=== PATIENT | male | born 1960 | race Asian ===

== ENCOUNTER 2019-05-06 22:34 | Inpatient (IN) | payer MEDICARE, OTHER ==
[~2019-05-06] VITALS: Ht 162.6 cm; Wt 69.9 kg
--- NOTE | 2019-05-06 22:45 | NUR ---
Patient BIB [facility] from [facility] Med-surg unit on a 5150 hold for DTS. Patient upon arrival A/Ox3, ambulatory with steady gait. No distress noted. Placed in room 3 and provided comfort and safety measures.
--- NOTE | 2019-05-06 22:50 | NUR ---
Hospital's secruity sandor doing 1:1 sitter on patient for safety.
[2019-05-06] MEDS ORDERED: ESOM20CA37 PO (22:56)
[2019-05-06] MEDS ORDERED: DOXE10CA2 PO (22:56)
[2019-05-06] MEDS ORDERED: METO-357 PO (22:56)
[2019-05-06] MEDS ORDERED: PYRI50CA PO (22:56)
[2019-05-06] MEDS ORDERED: ALPR1TAB7 PO (22:56)
[2019-05-06] MEDS ORDERED: DILT-32 PO (22:56)
[2019-05-06] MEDS ORDERED: FAMO40TA7 PO (22:56)
[2019-05-06] MEDS ORDERED: ATOR40TA PO (22:56)
[2019-05-06] MEDS ORDERED: DIPH-873 PO (22:56)
[2019-05-06] MEDS ORDERED: DOCU100C36 PO (22:56)
[2019-05-06] MEDS ORDERED: PROP150T2 PO (22:56)
[2019-05-06 23:19] LABS: BASOPHILS # (AUTO) 0.1 K/uL (0.0-8.0); BASOPHILS % (AUTO) 1.3 % (0.0-2.0); EOSINOPHILS # (AUTO) 0.7 K/uL (0.0-0.7); HEMOGLOBIN 14.1 g/dL (12.5-16.3); LYMPHOCYTES # (AUTO) 1.7 K/uL (20.0-40.0); MEAN CORPUSCULAR HEMOGLOBIN 30.6 uug (23.8-33.4); MEAN CORPUSCULAR HGB CONC 33 g/dL (32.5-36.3); MEAN CORPUSCULAR VOLUME 93.3 fL (73.0-96.2); MONOCYTES # (AUTO) 0.6 K/uL (2.0-10.0); MONOCYTES % (AUTO) 9.6 % (0.0-11.0); NEUTROPHILS # (AUTO) 2.8 K/uL (1.8-8.9); NEUTROPHILS % (AUTO) 48.1 % (38.5-71.5); PLATELET COUNT (AUTO) 300 K/uL (152-348); RED BLOOD CELL COUNT(AUTO) 4.61 MIL/uL (4.06-5.63); WHITE BLOOD COUNT (AUTO) 5.8 K/uL (3.6-10.2)
[2019-05-06 23:29] LABS: CARBON DIOXIDE 27 mmol/L (21-32); CHLORIDE 102 mmol/L (98-107); CREATININE 1.1 mg/dL (0.6-1.3); GLUCOSE 116 mg/dL (74-106); POTASSIUM 4.2 mmol/L (3.5-5.1); UREA NITROGEN, BLOOD 12 mg/dL (7-18)
[2019-05-06 23:30] LABS: *BILIRUBIN,URIN NEGATIVE (NEGATIVE); *CLARITY,URINE CLEAR (CLEAR); *COLOR,URINE YELLOW (YELLOW); *KETONES,URINE NEGATIVE (NEGATIVE); *UROBILINOGEN,URINE 0.2 E.U./dl (NORMAL); LEUKOCYTE ESTERASE ,URINE NEGATIVE (NEGATIVE); NITRITE, URINE NEGATIVE (NEGATIVE); UGLUCOSE NEGATIVE (NEGATIVE)
[2019-05-06 23:32] LABS: *BLOOD, URINE TRACE (NEGATIVE)
[2019-05-06 23:35] LABS: ALANINE AMINOTRANSFERASE 34 U/L (16-63); ALKALINE PHOSPHATASE 64 U/L (50-136); ASPARTATE AMINOTRANSFERASE 30 U/L (15-37); BILIRUBIN,DIRECT 0.1 mg/dL (0.0-0.2); BILIRUBIN,TOTAL 0.5 mg/dL (0.2-1.0); TOTAL PROTEIN, SERUM 7.3 g/dL (6.4-8.2)
[2019-05-06 23:37] LABS: ACETAMINOPHEN < 2.0 ug/mL (10-30)
[2019-05-06 23:38] LABS: RBC,URINE 0-3 /HPF (0-3)
[2019-05-06 23:39] LABS: BACTERIA,URINE NONE SEEN /HPF (NONE SEEN); SQUAMOUS EPITHELIAL CELL,UR NONE SEEN /HPF (NONE SEEN); WBC,URINE 0-3 /HPF (0-3)
[2019-05-06 23:42] LABS: THYROID STIMULATING HORMONE 0.869 mIU/mL (0.358-3.740)
[2019-05-06 23:50] LABS: *AMPHETAMINE, URINE NEGATIVE (NEGATIVE); *BARBITURATE, URINE NEGATIVE (NEGATIVE); *CANNABINOID, URINE NEGATIVE (NEGATIVE); *COCCAINE, URINE NEGATIVE (NEGATIVE); *OPIATE, URINE NEGATIVE (NEGATIVE); *PHENCYCLIDINE SCREEN,URINE NEGATIVE (NEGATIVE)
[2019-05-06 23:51] LABS: ETHANOL < 3 MG/DL (0-0)
--- NOTE | 2019-05-07 00:11 | NUR ---
Medically cleared by Dr Valdez.
--- NOTE | 2019-05-07 01:10 | NUR ---
Transfered to [facility] via [employer].
[2019-05-07] MEDS ORDERED: LORAZEPAM 1 MG TABLET PO PRN (01:15)
[2019-05-07] MEDS ORDERED: MAGNESIUM HYDROXIDE 30 ML LIQUID UDC PO PRN (01:15)
[2019-05-07] MEDS ORDERED: ACETAMINOPHEN 325 MG TABLET PO PRN (01:15)
[2019-05-07] MEDS ORDERED: MAG HYDROX/AL HYDROX/SIMETH 30 ML LIQUID UDC PO PRN (01:15)
[2019-05-07] MEDS ORDERED: TEMAZEPAM 7.5 MG CAPSULE PO PRN (01:15)
[2019-05-07 01:19] VITALS: BP 110/68
--- NOTE | 2019-05-07 02:00 | NUR ---
Admission Note: 59 y.o. (Mandarin/Slovak-speaking) male brought to MHU from ER via gurney accompanied by ER staff. Pt admitted on a 5150 for DTS under the care of Dr Villagomez and Dr Miles with a dx of MDD. According to the 5150, Pt had a failed suicide attempt by overdosing on an unknown amount of Doxepin, Ambien and Xanax. Pt initially stated he only took one extra pill then changed his story after being confronted with having been in the ICU and incubated for the past several days. Per Pts family, he has been avoiding psychiatric treatment for some time. Pt appears to reflect what is written on the Hold. Upon admission to the unit, VS stable, denies pain, and in no apparent physical distress. Upon face to face evaluation, Pt is A+Ox3, and states he is here, Because I ate too much medication. Pt admitted that he did it on purpose, but became guarded and gave limited disclosure stating, I dont want to say right now. Pt is hyper-fixated on discharging, and demands to see his psychiatrist first thing in the morning to tell him it was all a mistake. Pt denies or refuses to state and triggers or stressors leading to the event. Pt states he is no longer suicidal and no longer wants to . Verbally contracts for safety inside the hospital. Pt encouraged to seek staff if feeling self-injurious or suicidal, Pt verbalized understanding and agreed. Affect is guarded and flat, speech is pressured, and thought process is circumstantial. Pt denies AH/VH/HI. Pt was cooperative with the admission process and signed all paperwork, however became angry and very irritable when his electronic devices were being taken to put in the contraband storage, Pt was redirected. Denies any prior psychiatric hospital admissions or treatment. Pt denies an access to firearms or any legal hx, denies any current or prior smoking or substance abuse issues. Skin assessment completed-multiple circular scabs noted to (L) lower back, photo taken and placed in chart. Skin otherwise c/d/i. Medical h/o afib with (L) pacemaker, HLD, HTN, hydrocephalus with V/P shunt, anxiety, and MDD, allergy to morphine noted. Dr Villagomez and Dr Miles notified of admission, home meds to be reconciled, orders received. Pt belongings inventoried, contraband placed in unit locker. Pt gave permission to call his Padmini, and she was notified of Pt admission. Weak, unsteady gait noted, PT ordered. PNA and flu vaccinations ordered per Pt request. Patient Rights handbook and Advisement and Pt rights handbook given, unit rules explained, Pt verbalized understanding. Pt oriented to the unit, the phone, the restrooms, and his room. Q 15 minute rounding initiated for safety.
--- NOTE | 2019-05-07 03:02 | NUR ---
Social Work Note/Family: Patients agreed to pickling solution maker patient tomorrow.
--- NOTE | 2019-05-07 06:03 | NUR ---
[facility] called regarding medication reconciliation. Awaiting call back from Barrel Lathe Operator Outside [employer].
[2019-05-07 08:30] VITALS: BP 108/74
[2019-05-07] MEDS ORDERED: PNEUMOCOCCAL 23-VAL P-SAC VAC 0.5 ML VIAL IM ONE (09:00)
[2019-05-07] MEDS ORDERED: INFLUENZA VACCINE 2019-2020 0.5 ML DISP.SYRIN IM ONE (09:00)
--- NOTE | 2019-05-07 10:54 | NUR ---
Social Work Note/Initial Discharge Plan: Patient currently resides at home with Padmini ([phone]) [place] [address] [place] [address], ([phone]). Per patient, he would like to go home upon discharge. anode worker will work with the patient and the MD regarding appropriate discharge planning. anode worker will form a safe and proper discharge.
--- NOTE | 2019-05-07 10:55 | NUR ---
Social Work Note/Family Contact: crime prevention worker contacted patients Padmini ([phone]) who expressed that she has a language barrier and is unable to speak frisian. Per Padmini, she said to contact patients son Saad ([phone]). crime prevention worker contacted Saad ([phone]) who stated that he would want to meet with health and social care teacher 05/07/19 to discuss patients status.
--- NOTE | 2019-05-07 13:42 | NUR ---
Social Work Note/Family Contact: Patients family members son Saad ([phone]) and Pdamini ([phone]) visited social service assistant. Per Saad, he expressed that when patient was at [facility] his Doctor () was discharging patient and that our PET team went and put him on a hold, which the family is not agreeing with. Per Saad, he expressed that it was bad timing and that patient was already discharged and that Lance from our PET team went ahead and put patient on hold. stoneworker educated family about the safety of the patient and the reason for the hold. Family expressed that patient is not suicidal and that it was all a miscommunication with the staff. Per Saad, he expressed that the psychiatrist Dr. Mccullough discontinued patients medication Ativan as it made patient more agitated. Per Saad, he expressed that Seroquel was helpful and that benadryl helps with sleep. stoneworker educated patients family on what a 5150 hold is.
[2019-05-07] MEDS ORDERED: DOCUSATE SODIUM 100 MG CAPSULE PO PRN (14:00)
[2019-05-07] MEDS ORDERED: diphenhydrAMINE 25 MG CAP PO PRN (14:00)
[2019-05-07] MEDS ORDERED: CLOBETASOL PROPIONATE 0.05% OINT 15 GM TUBE TOP SCH (14:30)
[2019-05-07] MEDS ORDERED: MOMETASONE FUROATE 15 GM CREAM.GM. TOP SCH (14:30)
[2019-05-07] MEDS: CLOBETASOL PROPIONATE 0.05% CREAM 15 GM TUBE TP SCH ×2 (15:38→22:05)
[2019-05-07] MEDS: LORATADINE 10 MG TABLET PO SCH (15:39)
[2019-05-07 16:00] VITALS: BP 110/66
--- NOTE | 2019-05-07 16:01 | NUR ---
Social Work Note/Coordination of Care: livestock farmworker contacted patients primary doctor Dr. Saad Aguilera [address], [place] [address]; ([phone]) and spoke to Calvin who scheduled patient appointment for May 16 at 3PM. livestock farmworker faxed patients progress notes and [facility] psychiatric notes to Dr. Nash office ([phone]). livestock farmworker also called [facility] ([phone]) and spoke to [facility] who made the appointment for patient on May 15, 2019 at 9AM for a psychiatrist appointment with Dr. Tomy Oliver. livestock farmworker faxed patients progress notes and [facility] psychiatric notes to [facility] ([phone]).
--- NOTE | 2019-05-07 16:07 | NUR ---
Social Work Note/Coordination of Care: health workers spoke to Gisell ([phone]) who stated that if patient has any issues with his insurance upon arrival to see Dr. Huitron (psychiatrist) at [facility], the patient will have the opportunity to file a waiver form.
--- NOTE | 2019-05-07 16:10 | NUR ---
Social Work Note/Substance Abuse Intervention: Patient was provided with a brief substance abuse intervention and referred to [facility] , [facility] , and [facility] .
--- NOTE | 2019-05-07 16:11 | NUR ---
Bottom Polisher Note/Coordination of Care: heater worker contacted [facility] intake ([phone]) who shared phone number to Yuridia ([phone]) who would be able to refer patient to a psychiatrist. heater worker contacted Yuridia but she was unavailable. heater worker left a voicemail. heater worker then contacted [facility] ([phone]) who shared another contact number ([phone]) who operator bearer systems Jaydon helped community mental health social worker find [facility] phone number to make patient a psychiatrist appointment ([phone]) and stated that his insurance is covered.
[2019-05-07] MEDS ORDERED: Medication Not On Formulary EA (Famotidine 40 MG) PO SCH (17:00)
[2019-05-07] MEDS: PROPAFENONE HCL 150 MG TABLET PO SCH (18:14)
[2019-05-07] MEDS: FAMOTIDINE 20 MG TABLET PO SCH (18:16)
[2019-05-07 20:17] VITALS: BP 124/81
[2019-05-07] MEDS ORDERED: ATORVASTATIN 40 MG TABLET PO SCH (21:00)
[2019-05-08] MEDS ORDERED: PANTOPRAZOLE SODIUM 40 MG TABLET.DR PO SCH (07:00)
[2019-05-08 07:30] VITALS: BP_SYST 119; BP_SYST 129; BP_DIAS 64; BP_DIAS 80
--- NOTE | 2019-05-08 08:05 | NUR ---
Discharge Note: Patient will be discharged home to [address], [place] [address]; [phone]. Patients Padmini will coal picker patient at 10AM. Patients Padmini , ([phone]) is aware and agreeable to patients discharge. Upon discharge, patient appear to be calm, cooperative and happy to be going home. Patient denies suicidal and homicidal ideation. Patient will follow up with primary doctor Dr. Saad Aguilera [address], [place] [address]; ([phone]) appointment for May 16 at 3PM. Patient will address substance abuse dependency with psychiatrist and primary doctor. Patient will follow up with psychiatrist Dr. Tomy Oliver at [facility] at [address], [address] ([phone]) appointment for patient on May 15, 2019 at 9AM. Patient was provided with a brief substance abuse intervention and referred to [facility] , [facility] , and [facility] . Patient presents with euthymic and congruent mood. Patient was provided with outpatient mental health resources to [facility] , and the National Suicide Prevention Lifeline . Patient presented with euthymic and congruent mood.
[2019-05-08] MEDS ORDERED: DILTIAZEM HCL CD 120 MG CAP.SR.24H PO SCH (09:00)
[2019-05-08] MEDS ORDERED: ESOMEPRAZOLE MAGNESIUM 20 MG PO SCH (09:00)
[2019-05-08] MEDS ORDERED: Medication Not On Formulary EA (Pyridoxine Hcl (Vitamin B-6) 50 MG) PO SCH (09:00)
[2019-05-08] MEDS ORDERED: METOPROLOL SUCCINATE XL 50 MG TAB.SR.24H PO SCH (09:00)
[2019-05-08] MEDS: FAMOTIDINE 20 MG TABLET PO SCH (09:36)
[2019-05-08] MEDS: PROPAFENONE HCL 150 MG TABLET PO SCH (09:36)
[2019-05-08] MEDS: LORATADINE 10 MG TABLET PO SCH (09:36)
[2019-05-08] MEDS: CLOBETASOL PROPIONATE 0.05% CREAM 15 GM TUBE TP SCH (09:36)
[2019-05-08 09:41] VITALS: BP 119/80
--- NOTE | 2019-05-08 11:39 | NUR ---
Patient is being discharged home. Pt is being picked up by his Padmini. Discharge instructions are given. Patient verbalizes understanding, including the need to follow up with the psychiatrist and keep his appointment. Pt denies S.I and contracts for safety. All belongings returned. Pt signed the paperwork. VS are stable.
--- NOTE | 2019-06-05 16:13 | NUR ---
Social Work Note/Substance Abuse Follow-up: workers' compensation commissioner was unable to conduct a thorough follow-up intervention due to patient not picking up. This grant writer attempted 3 times ([phone]) and left voicemails.
== END 2019-05-08 13:10 | disposition home or self-care (01) | DRG 881 ==
LOC: ER 22:39 → GPS 23:59
PROVIDERS: ADMIT Psychiatry & Neurology Psychiatry; ATTEND Nurse Practitioner Acute Care
DX: F32.9 Major depressive disorder, single episode, unspecified (principal); K21.9 Gastro-esophageal reflux disease without esophagitis; Z95.0 Presence of cardiac pacemaker; F41.9 Anxiety disorder, unspecified; L40.9 Psoriasis, unspecified; T42.4X2D Poisoning by benzodiazepines, intentional self-harm, subsequent encounter; T43.012D Poisoning by tricyclic antidepressants, intentional self-harm, subsequent encounter
CPT/HCPCS: 36415; 70030-TC; 71045; 80307; 84443; 85025; 85730; 90686; 90732; 93005; A4663; G0480; G0480-TC